=== PATIENT | male | born 1940 | race Caucasian/White ===

== ENCOUNTER → 2016-12-17 | Day surgery (SDC) | payer MEDICARE ==
[~2016-12-17] MED LIST: ALPR.25 PO; BUME1TAB PO; CARD2TAB PO; FAMO20TA2 PO; HYDR500C PO; IBUP200T2 PO; IOHEXOL 180 MG/ML 20 ML VIAL (for RAD DIAG) EPIDURAL ONE; LIDOCAINE HCL 1% PF 30 ML VIAL INFIL ONE; LISI-515 PO; MEPERIDINE HCL 25 MG/ML VIAL IV ONE; MIDAZOLAM HCL 2 MG/2 ML VIAL IV ONE; OMEP40CA2 PO; POTA10CA PO; PROPOFOL 200 MG/20 ML AMP IV ONE; ROSU5 PO; SILD20TA11 PO; SODIUM CHLORIDE 0.9% 10 ML VIAL ONE; SYNT175T PO; TRIAMCINOLONE ACETONIDE 40 MG/ML VIAL NERV BLOCK ONE; ZOLP10TA3 PO
--- NOTE | 2016-12-19 20:46 | M6 ---
cc: Timbo ORTIZ DATE 12/17/2016 1942 PROCEDURE Fluoroscopically guided right C5-6 transforaminal epidural steroid injection. History and physical was completed and signed. Consent was signed. Procedure site was marked. Medications were listed and reconciled. Pain score was recorded. Allergies were noted. Time out was taken. Fluoroscopy time was recorded where applicable. Sedation was administered or directed by Dr. Ortiz. The patient was given oxygen. The patient was monitored by a registered nurse. Total procedure time was greater than 15 minutes. IV was started, blood pressure cuff, pulse oximeter and EKG were applied. The patient was placed in the supine position on a Gal table sedated with small amounts of Versed, Demerol and propofol titrated to effect. Vital signs were monitored and remained stable throughout the procedure. Cervical area was prepped with alcohol and 10% Betadine solution and draped with sterile drapes. Fluoroscopy was used in a slightly oblique angle to clearly visualize the right C5-6 neural foramen. The skin was infiltrated with 1% Xylocaine using a 27 gauge needle. Then a 3-1/2-inch 25-gauge spinal needle was advanced under fluoroscopic guidance to make bony contact just dorsal to the neural foramen, then gently redirected into the dorsal most aspect of the foramen itself. AP projection was shown that the needle was not advanced medially any further than the mid facet joint line. The patient did have a mild paresthesia in his right arm. Omnipaque dye was injected and there was no washout to injection of Omnipaque dye. There was no aspiration for blood or any other type of fluid. The patient was given 2 mL of 1% Xylocaine, 2 mL of Omnipaque and 60 mg of Kenalog at that location. Following this, the patient was taken to the recovery room with stable vital signs neurologically intact. MD BONNIE Douglas/ /9:53 AM /8:35 PM
== END | disposition home or self-care (01) ==
LOC: PHSDC 07:58
PROVIDERS: ATTEND Pain Medicine Interventional Pain Medicine
DX: M25.511 Pain in right shoulder (principal)
CPT/HCPCS: 64479; 99152; J2175; J2250; J3301; Q9965